=== PATIENT | male | born 1980 | race Caucasian/White ===

== ENCOUNTER 2017-07-03 20:15 | Observation (INO) ==
--- NOTE | 2017-07-03 21:36 | Emergency Department Note ---
Disposition Clinical Impression: Near syncope Hypertension Qualifiers: Hypertension type: unspecified Qualified Code(s): I10 - Essential (primary) hypertension Disposition: Admitted As Inpatient Condition: Good Instructions: Near Syncope (ED) Referrals: Flora Henderson MD [Primary Care Provider] - Forms: ED Satisfaction Letter Time of Disposition: 23:18 General Adult HPI - General Chief complaint: ED Dizziness Stated complaint: dizziness, vomiting, head pain Time Seen by Provider: 07/03/17 20:57 Source: patient, family Mode of arrival: ambulatory Limitations: no limitations Nursing Notes Reviewed: Yes Vital Signs Reviewed: Yes - History of Present Illness HPI Narrative: 36-year-old male with a history of anxiety and recently diagnosed hypertension presents to the ED for near syncope. He was at his daughter's volleyball game while at rest sitting he began to feel lightheaded feeling of passing out. He denies palpitations, chest pain, shortness of breath or severe headache. He decided to sit in the car and wait it out, he did feel nauseated and felt clammy but denies loss of consciousness. These symptoms occurred roughly at 1800 today. He just saw his primary care physician yesterday it was written diagnosed with hypertension placed on Triamterene-HCTZ 37.5-25 mg which she took this morning at 7 AM. His sertraline was also increased to 25 mg. He states this is not feel like his anxiety. Denies any history of cardiac ischemic disease. Denies any headache, cough, fever, recent illness. Denies any neck pain, abdominal pain, bloody stool or blacked tarry stools. He played sports as a child denies any syncope. Denies any sudden cardiac events in the family. Denies any history of blood clots, active cancer, long-distance travel , hospitalization or surgery. Denies any head trauma. He also reports a history of shingles located on his right temporal region he was seen and evaluated by his primary care physician is given Valtrex. He otherwise appears in no acute distress. Chest pain workup initiated. Concern for anginal equivalent. Also with get orthostatic vital signs. He currently is hypertensive 175/101 Pain Scale: 8 - Related Data Allergies Allergy/AdvReac Type Severity Reaction Status Date / Time No Known Allergies Allergy Verified 07/03/17 22:17 All systems ED: reviewed and negative except as stated. Review of Systems: As Per HPI Constitutional: Denies: fever, chills, weakness Eyes: Denies: vision change Cardiovascular: Reports: chest pain. Denies: dyspnea on exertion Respiratory: Denies: cough, dyspnea Gastrointestinal: Reports: nausea. Denies: abdominal pain, vomiting, diarrhea Genitourinary: Denies: urgency, dysuria Musculoskeletal: Denies: back pain, neck pain Integumentary: Denies: rash, abrasion, lesions Neurological: Denies: headache, weakness, numbness, confusion, vertigo Psychiatric: Reports: anxiety Past Medical History - Past Medical History Attestation: Yes The following information was validated with the patient. Source: patient Medical history: Reports: hypertension Psychiatric history: Reports: anxiety - Social History Smoking Status: Never smoker Smokeless Tobacco Status: Yes Alcohol use: Reports: occasionally Drug use: Reports: none Physical Exam - General Limitations: no limitations General appearance: alert, in no apparent distress - Head Head exam: atraumatic, normocephalic, normal inspection - Eye Eye exam: Present: normal appearance, PERRL, EOMI - ENT ENT exam: normal exam, normal oropharynx, mucous membranes moist - Neck Neck exam: Present: normal inspection, full ROM, trachea midline - Chest Chest inspection: Present: normal inspection, symmetric chest wall rise. Absent : tenderness - Respiratory Respiratory exam: Present: normal lung sounds bilaterally. Absent: respiratory distress, wheezes - Cardiovascular Cardiovascular exam: Present: regular rate, normal rhythm, normal heart sounds, other (no murmur with valsalva or standing). Absent: systolic murmur, diastolic murmur - Abdominal Exam Abdominal exam: Present: soft, Non-Tender, normal bowel sounds. Absent: tenderness, distention, guarding, rebound, rigidity - Extremities Exam Extremities exam: Present: normal inspection, full ROM, normal capillary refill. Absent: tenderness, pedal edema - Neurological Exam Neurological exam: Present: alert, oriented X3, CN II-XII intact, normal gait - Expanded Neurological Exam Patient oriented to: Present: person, place, time Speech: Present: fluid speech Cranial nerves: EOM function (II, III, IV, ): Normal, facial sensation (V): Normal, facial palsy (VII): Normal, gag reflex (IX): Normal, spinal accessory function (XI): Normal, tongue deviation (XII): Normal Cerebellar function: finger to nose: Normal, heel to buchanan: Normal Cerebellar function: normal gait, Romberg normal Motor strength - LUE: 5/5 Motor strength - RUE: 5/5 Motor strength - LLE: 5/5 Motor strength - RLE: 5/5 Upper motor neuron exam: shira neglect: Absent bilaterally, pronator drift: Absent bilaterally Sensory exam upper extremity: light touch: Normal Sensory exam lower extremity: light touch: Normal - Psychiatric Psychiatric exam: Present: normal affect, normal mood - Skin Skin exam: Present: warm, dry, intact, normal color. Absent: cyanosis, diaphoresis Course - Reevaluation(s) Reevaluation #1: When my attending spoke with patient, he described some chest discomfort as well as clamminess during near syncopal episode. Concerning due to recent diagnosis of hypertension, chest pain workup initiated with d-dimer. Labs reviewed, d-dimer is <215. Troponin is 0. Labs are otherwise unremarkable other than elevated hgb. EKG does not reveal any arrhythmia, prolonged intervals, delta wave, Brugada pattern, or LVH to suggest HOCM. No murmur on auscultation. Neurologic exam is normal without focal neuro deficits. Given his presentation however would like to admit for serial enzymes and monitor. Patient is in agreement with this plan. Impression is near syncope, chest pain, and hypertension. Aspirin ordered here and given. His BP has come down from 175/101 to 150/108 without intervention. No signs of end-organ damage. Time: 23:06 - Consultations Consultation #1: Spoke to on-call hospitalist joelle Mccurdy to admit for near syncope, hypertension, and chest pain. No further orders at this time. Time: 23:20 Vital Signs Temperature 97.7 F 07/03/17 20:18 Pulse Rate 97 07/03/17 20:18 Respiratory Rate 18 07/03/17 20:18 Blood Pressure 175/107 07/03/17 20:18 O2 Sat by Pulse Oximetry 98 07/03/17 20:18 Temperature 97.7 F 07/03/17 20:18 Pulse Rate 81 07/03/17 22:08 Respiratory Rate 18 07/03/17 20:18 Blood Pressure 167/107 07/03/17 22:08 O2 Sat by Pulse Oximetry 98 07/03/17 20:18 Oxygen Delivery Oxygen Delivery Room Air Medical Decision Making - Medical Records Medical records reviewed: Yes I reviewed the patient's medical records. - Lab Data Lab results reviewed: Yes I reviewed the patient's lab results. Result diagrams: 07/03/17 22:29 07/03/17 22:29 Lab Results 07/03/17 07/03/17 07/03/17 Range/Units 22:29 22:29 22:29 WBC 8.3 (4.3-11.1) K/mcL RBC 5.52 H (4.19-5.50) M/mcL Hgb 18.5 H (12.9-16.9) g/dL Hct 51.0 H (37.5-50.1) % MCV 92.4 (83.0-100.0) fL MCH 33.5 H (28.0-33.3) pg MCHC 36.3 H (31.6-35.5) g/dL RDW 12.1 (11.5-14.5) % Plt Count 246 (140-400) K/mcL MPV 9.8 (9.4-12.4) fL Immature Gran % 0.6 (0-4) % Seg Neutrophils % 59.1 % Lymphocytes % 28.0 % Monocytes % 8.9 % Eosinophils % 2.3 % Basophils % 1.1 % Neutrophils # 4.9 (1.6-8.9) K/mcL Lymphocytes # 2.3 (0.6-4.6) K/mcL Monocytes # 0.7 (0.0-1.3) K/mcL Eosinophils # 0.2 (0.0-0.6) K/mcL Basophils # 0.1 (0.0-0.2) K/mcL D-Dimer (0-500) ng/mLFEU Sodium 138 (136-145) mEq/L Potassium 4.3 (3.5-4.5) mEq/L Chloride 99 (98-109) mEq/L Carbon Dioxide 26 (19-29) mEq/L BUN 13 (8-26) mg/dL Creatinine 1.07 (0.72-1.25) mg/dL Est GFR ( Amer) > 60 (> 60) Est GFR (Non-Af Amer) > 60 (> 60) BUN/Creatinine Ratio 12 (6-26) Glucose 101 H (70-99) mg/dL Calculated Osmolality 286 (280-300) Calcium 10.1 (8.6-10.8) mg/dL Troponin I 0.00 (0-0.03) ng/mL 07/03/17 Range/Units 22:29 WBC (4.3-11.1) K/mcL RBC (4.19-5.50) M/mcL Hgb (12.9-16.9) g/dL Hct (37.5-50.1) % MCV (83.0-100.0) fL MCH (28.0-33.3) pg MCHC (31.6-35.5) g/dL RDW (11.5-14.5) % Plt Count (140-400) K/mcL MPV (9.4-12.4) fL Immature Gran % (0-4) % Seg Neutrophils % % Lymphocytes % % Monocytes % % Eosinophils % % Basophils % % Neutrophils # (1.6-8.9) K/mcL Lymphocytes # (0.6-4.6) K/mcL Monocytes # (0.0-1.3) K/mcL Eosinophils # (0.0-0.6) K/mcL Basophils # (0.0-0.2) K/mcL D-Dimer < 215 (0-500) ng/mLFEU Sodium (136-145) mEq/L Potassium (3.5-4.5) mEq/L Chloride (98-109) mEq/L Carbon Dioxide (19-29) mEq/L BUN (8-26) mg/dL Creatinine (0.72-1.25) mg/dL Est GFR ( Amer) (> 60) Est GFR (Non-Af Amer) (> 60) BUN/Creatinine Ratio (6-26) Glucose (70-99) mg/dL Calculated Osmolality (280-300) Calcium (8.6-10.8) mg/dL Troponin I (0-0.03) ng/mL - Radiology Data Radiology results reviewed: Yes I reviewed the patient's radiology results. Chest X-Ray 07/03/17 21:28 IMPRESSION: No acute process. D/ / Jose Decker MD / Jose Decker MD Interpreting Provider: Jose Decker MD - EKG Data EKG #1 EKG attestation: Yes I reviewed and interpreted this EKG. EKG results narrative: EKG performed 2130 normal sinus rhythm 78 bpm, no ST elevations or depression, intervals are within normal limits LA interval 156, QRS 105 QT QTc 362 395. Compared to old EKG performed 03/11/2014 shows consistent findings. No delta wave, Brugada pattern or LVH. No acute ischemic changes.
--- NOTE | 2017-07-03 22:00 | Emergency Department Note ---
Disposition Clinical Impression: Near syncope, Hypertension Disposition: Admitted As Inpatient Condition: Good General Adult HPI - General Chief complaint: ED Dizziness Stated complaint: dizziness, vomiting, head pain Time Seen by Provider: 07/03/17 20:57 Source: patient, family Mode of arrival: ambulatory Limitations: no limitations - History of Present Illness Pain Scale: 8 - Related Data Home Medications Medication Instructions Recorded Confirmed LORazepam [Ativan] 1 mg PO DAILY PRN 07/04/17 07/04/17 Omeprazole [PriLOSEC] 20 mg PO DAILY 07/04/17 07/04/17 Sertraline [Zoloft] 25 mg PO DAILY 07/04/17 07/04/17 Triamterene/HCTZ 37.5/25mg 1 each PO DAILY 07/04/17 07/04/17 [Dyazide] valACYclovir [Valtrex] 500 mg PO DAILY 07/04/17 07/04/17 Allergies Allergy/AdvReac Type Severity Reaction Status Date / Time shellfish derived Allergy Shortness Verified 07/04/17 11:37 of Breath Past Medical History - Past Medical History Medical history: Reports: hypertension Psychiatric history: Reports: anxiety - Social History Smoking Status: Never smoker Smokeless Tobacco Status: Yes Alcohol use: Reports: occasionally Drug use: Reports: none Physical Exam - General Limitations: no limitations General appearance: alert Course - Reevaluation(s) Reevaluation #1: I saw the patient with the resident, Dr. Go. Patient presented with a near syncopal episode that occurred between 6 and 7:00 this evening. He was sitting at his daughter's volleyball game when he suddenly felt himself getting lightheaded. He specifically said he did not feel like the room was spinning and he specifically stated that it did not feel like vertigo. He said he felt himself get clammy and sweaty and lightheaded. He decided walk to the car and see if that will make him feel better but he continued to get worse and so he talked to his and they came here to try to be seen. At this time he says he still feels funny. He tells me that he had some chest tightness while this was going on. He does not have chest tightness at this time in the department. His 12-lead EKG shows no evidence of ischemia at this time. His examination is unremarkable. Listening to the story I am concerned that this could be a cardiac cause of near syncope. We will check a chest pain workup including a d- dimer. I think the patient is going to need to be admitted to the hospital. At this point is getting to the end of my shift so will be turning the case over to the night team. They will be told of the extrication to admit the patient after the workup is completed. Time: 22:00 Vital Signs Temperature 97.7 F 07/03/17 20:18 Pulse Rate 97 07/03/17 20:18 Respiratory Rate 18 07/03/17 20:18 Blood Pressure 175/107 07/03/17 20:18 O2 Sat by Pulse Oximetry 98 07/03/17 20:18 Temperature 98.2 F 07/04/17 10:45 Pulse Rate 74 07/04/17 13:45 Respiratory Rate 14 07/04/17 14:53 Blood Pressure 146/88 07/04/17 14:53 O2 Sat by Pulse Oximetry 97 07/04/17 10:45 Oxygen Delivery Oxygen Delivery Room Air Medical Decision Making - Lab Data Result diagrams: 07/04/17 04:33 07/04/17 04:33 Lab Results 07/03/17 07/03/17 07/03/17 Range/Units 22:29 22:29 22:29 WBC 8.3 (4.3-11.1) K/mcL RBC 5.52 H (4.19-5.50) M/mcL Hgb 18.5 H (12.9-16.9) g/dL Hct 51.0 H (37.5-50.1) % MCV 92.4 (83.0-100.0) fL MCH 33.5 H (28.0-33.3) pg MCHC 36.3 H (31.6-35.5) g/dL RDW 12.1 (11.5-14.5) % Plt Count 246 (140-400) K/mcL MPV 9.8 (9.4-12.4) fL Immature Gran % 0.6 (0-4) % Seg Neutrophils % 59.1 % Lymphocytes % 28.0 % Monocytes % 8.9 % Eosinophils % 2.3 % Basophils % 1.1 % Neutrophils # 4.9 (1.6-8.9) K/mcL Lymphocytes # 2.3 (0.6-4.6) K/mcL Monocytes # 0.7 (0.0-1.3) K/mcL Eosinophils # 0.2 (0.0-0.6) K/mcL Basophils # 0.1 (0.0-0.2) K/mcL D-Dimer (0-500) ng/mLFEU Sodium 138 (136-145) mEq/L Potassium 4.3 (3.5-4.5) mEq/L Chloride 99 (98-109) mEq/L Carbon Dioxide 26 (19-29) mEq/L BUN 13 (8-26) mg/dL Creatinine 1.07 (0.72-1.25) mg/dL Est GFR ( Amer) > 60 (> 60) Est GFR (Non-Af Amer) > 60 (> 60) BUN/Creatinine Ratio 12 (6-26) Glucose 101 H (70-99) mg/dL Calculated Osmolality 286 (280-300) Calcium 10.1 (8.6-10.8) mg/dL Troponin I 0.00 (0-0.03) ng/mL // Range/Units 22:29 WBC (4.3-11.1) K/mcL RBC (4.19-5.50) M/mcL Hgb (12.9-16.9) g/dL Hct (37.5-50.1) % MCV (83.0-100.0) fL MCH (28.0-33.3) pg MCHC (31.6-35.5) g/dL RDW (11.5-14.5) % Plt Count (140-400) K/mcL MPV (9.4-12.4) fL Immature Gran % (0-4) % Seg Neutrophils % % Lymphocytes % % Monocytes % % Eosinophils % % Basophils % % Neutrophils # (1.6-8.9) K/mcL Lymphocytes # (0.6-4.6) K/mcL Monocytes # (0.0-1.3) K/mcL Eosinophils # (0.0-0.6) K/mcL Basophils # (0.0-0.2) K/mcL D-Dimer < 215 (0-500) ng/mLFEU Sodium (136-145) mEq/L Potassium (3.5-4.5) mEq/L Chloride (98-109) mEq/L Carbon Dioxide (19-29) mEq/L BUN (8-26) mg/dL Creatinine (0.72-1.25) mg/dL Est GFR ( Amer) (> 60) Est GFR (Non-Af Amer) (> 60) BUN/Creatinine Ratio (6-26) Glucose (70-99) mg/dL Calculated Osmolality (280-300) Calcium (8.6-10.8) mg/dL Troponin I (0-0.03) ng/mL Attestation Statement - Attestation Attestation: I, Dr. Moseley, examined this patient [id number] and my medical decision- making was reviewed with the Resident Physician, Dr. Go. I agree with the documented findings, disposition and treatment plan as described except to the extent set forth below. Please see my progress notes for details.
[2017-07-03 22:40] LABS: Basophils # 0.1 K/mcL (0.0-0.2); Basophils % 1.1 %; Eosinophils # 0.2 K/mcL (0.0-0.6); Eosinophils % 2.3 %; Hemoglobin 18.5 g/dL (12.9-16.9); Immature Granulocytes % 0.6 % (0-4); Lymphocytes # 2.3 K/mcL (0.6-4.6); Mean Corpuscular HGB Conc 36.3 g/dL (31.6-35.5); Mean Corpuscular Hemoglobin 33.5 pg (28.0-33.3); Mean Corpuscular Volume 92.4 fL (83.0-100.0); Mean Platelet Volume 9.8 fL (9.4-12.4); Monocytes # 0.7 K/mcL (0.0-1.3); Monocytes % 8.9 %; Neutrophils # 4.9 K/mcL (1.6-8.9); Platelet Count 246 K/mcL (140-400); Red Blood Count 5.52 M/mcL (4.19-5.50); Red Cell Distribution Width 12.1 % (11.5-14.5); Segmented Neutrophils % 59.1 %
[2017-07-03 22:48] LABS: BUN/Creatinine Ratio 12 (6-26); Blood Urea Nitrogen 13 mg/dL (8-26); Calcium 10.1 mg/dL (8.6-10.8); Carbon Dioxide 26 mEq/L (19-29); Chloride 99 mEq/L (98-109); Glucose 101 mg/dL (70-99); Osmolality,Calculated 286 (280-300); Potassium 4.3 mEq/L (3.5-4.5); Sodium 138 mEq/L (136-145); eGFR For African Americans > 60 (> 60); eGFR For Non-African Americans > 60 (> 60)
[2017-07-03] MEDS ORDERED: 0.9 % Sodium Chloride 1,000 ML IVC ONE (23:16)
[2017-07-03] MEDS ORDERED: Aspirin 81 MG TAB.CHEW PO STA (23:19)
[2017-07-04] MEDS ORDERED: Acetaminophen 325 MG TABLET PO PRN (00:30)
[2017-07-04] MEDS ORDERED: Ondansetron 4 MG/2 ML VIAL IVP PRN (00:30)
[2017-07-04] MEDS ORDERED: Nitroglycerin 0.4 MG TAB.SUBL SL PRN (01:09)
--- NOTE | 2017-07-04 01:10 | Internal Med History&Physical ---
<Alejo Coffman - Last Filed: 07/04/17 01:11> Date of Encounter: 07/04/17 Time of Encounter: 00:10 Assessment and Plan (1) ACS (acute coronary syndrome) Current visit: Yes Status: Suspected - Concern of ACS given patient's near-syncope with chest pain and multiple risk factors (HTN, obesity, tobacco chewing). - Currently no chest pain and initial troponin & EKG are negative. - Telemetry monitoring, serial troponin and nuclear stress test. - Start aspirin, statin, beta-gage and prn nitro. (2) Near syncope Current visit: Yes Status: Acute - New-onset lightheadedness with near syncope. - Likely orthostatic hypotension (given positive orthostatic vital signs in ED) and/or vasovagal. - Admit for further work-up including echocardiogramfor other possible cardiogenic causes including ACS, arrhythmia or underlying valvular disease. - Echocardiogram and continuous telemetry for further evaluation - Patient is instructed to remain well-hydrated and take time to get up slowly. - Will hold patient's home Triamterene-HCTZ for now given it's potential contribution to orthostatic hypotension. (3) Hypertension Current visit: Yes Status: Chronic - Patient was started on Triamterene-HCTZ, 37.5-25 mg daily by his PCP on . - Will hold Triamterene-HCTZ for now given it's potential contribution to patient's orthostatic hypotension. - Metoprolol was started for the concern of possible ACS. - Patient will need to follow up with his PCP after discharge to discuss about his blood pressure management regimen. Qualifiers: Hypertension type: essential hypertension Qualified Code(s): I10 - Essential (primary) hypertension (4) Shingles Current visit: Yes Status: Chronic - Patient reports having right temporal shingles. - Continue valacyclovir. Qualifiers: Herpes zoster complications: without complications Qualified Code(s): B02.9 - Zoster without complications (5) Anxiety Current visit: Yes Status: Chronic - Continue home dose sertraline and prn lorazepam. (6) DVT prophylaxis Current visit: Yes Status: Acute - SQ heparin. Internal Medicine - H&P: HPI Chief complaint: Near-syncope Admitted From: Emergency Dept Plans for Post Hospital Care: Home History of present illness: Mr. Cabrera is a 36 year old male with PMH of anxiety and hypertension which his PCP started him on Triamterene-HCTZ 37.5-25 daily on 07/02/17. Patient presented with complaint of new-onset lightheadedness with near syncope. Patient reports it started when he sat down and watched his daughter's volleyball game at around 1800. No modifying factor noted including exertion. It 's associated with chest tightness, diaphoresis, palpitation, pulsating sensation of right ear and nausea/vomiting. Patient denies syncope, shortness of breath, vision change, numbness/tingling, focal weakness. Patient reports being well-hydrated recently. Patient denies smoking cigarettes but admits tobacco chewing. Patient denies known heart problem. Patient denies family history of sudden and the only family member with [place] he knows of is his grandfather. Past Med Surg Social Fam HX - Past Medical History Medical history: hypertension Psychiatric history: anxiety - Past Surgical History Surgical History: other (right ankle surgery) - Social History Smoking Status: Never smoker (But chewing tobacco) Smokeless Tobacco Status: Yes Alcohol use: occasionally Drug use: none - Family History Paternal Grandfather Living Status: Cause of : [place] Internal Medicine - H&P: Meds LORazepam [Ativan] 1 mg PO DAILY PRN 07/04/17 [History] Omeprazole [PriLOSEC] 20 mg PO DAILY 07/04/17 [History] Sertraline [Zoloft] 25 mg PO DAILY 07/04/17 [History] Triamterene/HCTZ 37.5/25mg 37.5 mg PO DAILY 07/04/17 [History] valACYclovir [Valtrex] 500 mg PO DAILY 07/04/17 [History] No Known Allergies Allergy (Verified 07/03/17 22:17) All Systems PM: A 10-system review of systems was performed and is negative for pertinent findings except as documented above in the HPI. - Constitutional Constitutional: no anorexia, no chills, no fever(s) - EENT Eyes: no change in vision Ears: no decreased hearing Nose, mouth and throat: no dysphagia, no odynophagia - Cardiovascular Cardiovascular ROS IM: as per HPI, chest pain, lightheadedness, palpitations, no edema, no syncope - Respiratory Respiratory: no cough, no dyspnea, no hemoptysis - Gastrointestinal Gastrointestinal: nausea, vomiting, no abdominal pain, no diarrhea, no hematochezia, no melena - Genitourinary Genitourinary ROS male: no difficulty urinating, no dysuria, no hematuria - Integumentary Integumentary IM: no pruritus, no rash - Neurological Neurological ROS: no focal weakness, no numbness, no tingling - Hematologic/Lymphatic Hematologic/Lymphatic: no easy bleeding, no easy bruising - Constitutional Vitals: Temp Pulse Resp BP Pulse Ox 97.8 F 63 15 157/100 97 07/04/17 00:47 07/04/17 00:47 07/04/17 00:47 07/04/17 00:47 07/04/17 00:47 General appearance: Present: cooperative, A&O X 3, no acute distress, obese, answers questions appropriately - Head Head exam: Present: atraumatic, normocephalic - Eye Eye exam: Present: EOMI, PERRL, conjuntiva pink, sclera anicteric - Neck Neck exam general surgery: Present: supple, trachea midline. Absent: lymphadenopathy - Respiratory Respiratory exam: Present: CTAB. Absent: accessory muscle use, rales, rhonchi, wheezes - Cardiovascular Cardiovascular exam: Present: RRR, +S1, +S2. Absent: diastolic murmur, gallop, rubs, systolic murmur - GI/Abdominal GI/Abdominal exam: Present: normal bowel sounds, soft, no peritoneal signs. Absent: distended, tenderness - Extremities Exam Extremities exam: Present: warm, radial pulses palpable and symmetrical. Absent : calf tenderness, cyanotic, pedal edema - Neurological Exam Neurological exam: Present: CN II-XII intact, oriented X3, no focal deficits. Absent: pronater drift, facial droop, speech deficit - Skin Skin exam: Present: dry, intact, warm Internal Med - H&P Results - Labs CBC & Chem 7: 07/03/17 22:29 07/03/17 22:29 <Adiel Mcclure - Last Filed: 07/04/17 02:32> Date of Encounter: 07/04/17 Assessment and Plan (1) GERD (gastroesophageal reflux disease) Current visit: Yes Status: Chronic will continue PPI Qualifiers: Esophagitis presence: without esophagitis Qualified Code(s): K21.9 - Gastro -esophageal reflux disease without esophagitis Internal Medicine - H&P: HPI History of present illness: Mr. Cabrera is a 36 year old male Past Med Surg Social Fam HX - Past Medical History Source: patient, nursing notes reviewed Medical history: GERD All Systems PM: A 10-system review of systems was performed and is negative for pertinent findings except as documented above in the HPI. - Constitutional Vitals: Temp Pulse Resp BP Pulse Ox 97.8 F 63 15 157/100 97 07/04/17 00:47 07/04/17 00:47 07/04/17 00:47 07/04/17 00:47 07/04/17 00:47 Internal Med - H&P Results - Labs CBC & Chem 7: 07/03/17 22:29 07/03/17 22:29 - EKG Data -: EKG Interpreted by Myself - EKG Data Prior EKG available for review: yes When compared to previous EKG: there is no significant change - Diagnostic Studies Chest x-ray Status: image reviewed by me - Attending Attestation I personally interviewed and examined this patient and my medical decision- making was reviewed with the Resident Physician. I agree with the documented findings, disposition and treatment plan as described. Patient comes in with a mixture of symptoms bordering on vasovagal vs orthostatic hypotension(in the setting of new combination medication, started just 2-3 days prior). The concern here is that he has risk factors for CAD as well as symptoms that is concerning for ACS, he will therefore benefit from ACS r/o. With regards to his orthostatic hypotension we may need to hold his new combination antihypertensives and do a single medication at a low dose and gradually titrate up based on his symptoms and BP readings, per patient his PCP is very accessible and can work with patient on this on the outpatient. Adiel Mcclure MD, MPH Hospitalist
[2017-07-04] MEDS ORDERED: *HR* LORazepam 1 MG TABLET PO PRN (01:27)
[2017-07-04] MEDS: *HR* Heparin 5,000 UNIT/ML VIAL SQ SCH ×3 (04:44→21:48)
[2017-07-04 05:25] LABS: Immature Platelets 4.6 % (1.1-6.1); Mean Corpuscular HGB Conc 35.5 g/dL (31.6-35.5); Mean Corpuscular Hemoglobin 33.3 pg (28.0-33.3); Mean Corpuscular Volume 93.6 fL (83.0-100.0); Mean Platelet Volume 10.4 fL (9.4-12.4); Red Blood Count 5.02 M/mcL (4.19-5.50); Red Cell Distribution Width 12.3 % (11.5-14.5)
[2017-07-04 05:29] LABS: Hemoglobin 16.7 g/dL (12.9-16.9)
[2017-07-04 05:41] LABS: BUN/Creatinine Ratio 15 (6-26); Blood Urea Nitrogen 13 mg/dL (8-26); Carbon Dioxide 27 mEq/L (19-29); Chloride 102 mEq/L (98-109); Glucose 97 mg/dL (70-99); Magnesium 2.1 mg/dL (1.6-2.6); Osmolality,Calculated 284 (280-300); Potassium 3.8 mEq/L (3.5-4.5); Sodium 137 mEq/L (136-145); eGFR For African Americans > 60 (> 60); eGFR For Non-African Americans > 60 (> 60)
[2017-07-04 06:03] LABS: Thyroid Stimulating Hormone 2.234 mcIU/mL (0.350-4.840)
[2017-07-04] MEDS: Aspirin 81 MG TAB.CHEW PO SCH (09:06)
[2017-07-04] MEDS: valACYclovir 500 MG TABLET PO SCH (09:09)
--- NOTE | 2017-07-04 11:49 | Nuclear Medicine Stress Report ---
Exercise Nuclear Stress Name: Minh Cabrera Date of Study: 07/04/2017 Date: 1980 Ht: 70.0 in Medical Record#: [id number] Age: 36 Wt: 223.0 lb Gender: Male Order #: [id number] Location: [facility] Room: [facility] Supervising Provider: Luke Larios CNP Reading Physician: Surya Santos MD, [facility] Ordering Physician: Karin Aguirre CNP Primary Care Physician: Flora Henderson MD Stress Technologist: Analilia De La Cruz RRT Processing Lead: Amador Burroughs Indications: Chest Pain Impression: Baseline elevated blood pressure (142/96). Peak BP with exercise was 200/110. The exercise capacity was excellent. Exercise ECG is negative for ischemia. Gated LVEF = 62%. Perfusion imaging was negative for ischemia or infarct. History: Hypertension Stress Test Summary: Stress Test Type: Treadmill Protocol: Mayur Baseline Information: Initial Heart Rate: 70 Blood Pressure: 142/96 Stress Information: Stress Time: 12 min 31 sec Test Terminated Due to (primary): Fatigue Maximum Blood Pressure: 200/110 Maximum Heart Rate: 159 Percent Maximum Heart Rate Achieved: 87 Double Product: 31351 METS Reached: 12.8 Symptoms: Fatigue Nuclear Summary: SPECT myocardial perfusion imaging using Tc99m Sestamibi given intravenously was performed at rest and following cardiac stress testing. The resting images were obtained following initial dose of 11.3 mCi. Following stress an additional dose of 35.3 mCi was given at peak exercise or 30 seconds post regadenoson infusion. Findings: Stress Note * Resting ECG demonstrated sinus rhythm. * No baseline arrhythmias were noted. * The exercise capacity was excellent. * Patient had no chest pain during stress. * No arrhythmias were noted during stress. * Exercise ECG is negative for ischemia. Hemodynamic responses * Baseline elevated blood pressure (142/96). Peak BP with exercise was 200/110. Study Quality * Study quality is average. Gated EF % * Gated LVEF = 62%. Left Ventricle * The left ventricle is not dilated. * Inferoapical artifact noted on resting images. * Normal segmental perfusion in stress. TID * No evidence of transient ischemic dilatation. Updated by Surya Santos MD, [facility] on 07/04/2017 11:43:20 AM electronically signed on 07/04/2017 11:43:48 AM with status of Final
[2017-07-04] MEDS ORDERED: Ondansetron ODT 4 MG TAB.RAPDIS SL PRN (13:50)
--- NOTE | 2017-07-04 15:30 | Electrocardiograph Report ---
[place] [id number] Test Date: 2017-07-03 Pat Name: Minh Cabrera Department: 105 Room: [facility] Gender: M Bale Sewer: : 1980 Requested By: Rolando Go Order Number: [id number] Reading MD: Mayur Randolph MD Measurements Intervals Wedron Rate: 78 P: 57 AL: 156 QRS: -24 QRSD: 105 T: 1 QT: 362 QTc: 395 Interpretive Statements SINUS RHYTHM BORDERLINE LEFT AXIS DEVIATION Poor R wave progression Electronically Signed On 07-04-2017 15:28:30 EDT by Mayur Randolph MD
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
[2017-07-04] MEDS ORDERED: Methyl Salicylate/Menthol 28 GM TUBE TP PRN (23:32)
[2017-07-05 04:28] LABS: Basophils # 0.1 K/mcL (0.0-0.2); Basophils % 0.8 %; Eosinophils # 0.3 K/mcL (0.0-0.6); Hematocrit 46.6 % (37.5-50.1); Hemoglobin 16.2 g/dL (12.9-16.9); Immature Granulocytes % 0.6 % (0-4); Lymphocytes # 2.7 K/mcL (0.6-4.6); Lymphocytes % 32.5 %; Mean Corpuscular HGB Conc 34.8 g/dL (31.6-35.5); Mean Corpuscular Hemoglobin 32.9 pg (28.0-33.3); Mean Corpuscular Volume 94.7 fL (83.0-100.0); Mean Platelet Volume 10.1 fL (9.4-12.4); Monocytes # 0.8 K/mcL (0.0-1.3); Monocytes % 8.9 %; Neutrophils # 4.5 K/mcL (1.6-8.9); Platelet Count 202 K/mcL (140-400); Red Blood Count 4.92 M/mcL (4.19-5.50); Red Cell Distribution Width 12.1 % (11.5-14.5); Segmented Neutrophils % 54.2 %
[2017-07-05 04:41] LABS: BUN/Creatinine Ratio 15 (6-26); Blood Urea Nitrogen 14 mg/dL (8-26); Carbon Dioxide 29 mEq/L (19-29); Chloride 104 mEq/L (98-109); Glucose 97 mg/dL (70-99); Osmolality,Calculated 290 (280-300); Potassium 4.2 mEq/L (3.5-4.5); Sodium 140 mEq/L (136-145); eGFR For African Americans > 60 (> 60); eGFR For Non-African Americans > 60 (> 60)
[2017-07-05] MEDS: *HR* Heparin 5,000 UNIT/ML VIAL SQ SCH ×2 (05:16→14:29)
[2017-07-05] MEDS: valACYclovir 500 MG TABLET PO SCH (08:11)
[2017-07-05] MEDS: Aspirin 81 MG TAB.CHEW PO SCH (08:13)
[2017-07-05] MEDS ORDERED: hydroCHLOROthiazide 25 MG TABLET PO SCH (09:00)
[2017-07-05 15:14] VITALS: BP 159/82
--- NOTE | 2017-07-05 15:51 | EEG/EMG/Oth Biometrics Report ---
EEG Procedure Report Date of procedure: 07/05/17 EEG Procedure: Routine EEG Procedure Note: This is a report of a 21 channel bipolar and referential montage EEG. The posterior dominant rhythm of 9-10 Hz moderate voltage alpha frequencies identified symmetrically in the posterior head regions. This rhythm attenuates with eye opening. Beta frequencies identified bifrontally during wakefulness. Hyperventilation is performed and does result in some desynchronization of the recording however no ictal activity is identified during hyperventilation. Periods of drowsiness and stage II sleep were identified as referenced by dropout of the posterior dominant rhythm and the emergence of vertex activity, K complexes, and sleep spindles. Photic stimulation is performed and produces a symmetric driving response. The EKG strip reveals sinus bradycardia at 54 beats per minute. Impressions: This EEG recording is within normal limits. There is no evidence of epileptiform activity identified during the study. Comment: Motor frequencies are not recognized as a normal variant, however may also be reflective of a host of metabolic conditions, anxiety, and medication effect namely benzodiazepines and barbiturates. Please correlate clinically.
--- NOTE | 2017-07-05 15:52 | Discharge Summary ---
Date of Encounter: 07/05/17 Time of Encounter: 14:40 - Discharge Diagnosis (1) Near syncope Priority: Primary Status: Acute Comments: Pt reports near syncope at daughter's volleyball game prior to arrival to the ED. Pt states that he is feeling better today and is back to his baseline dizziness. I believe that this was medication related since he had just been started on combination antihypertensive 1 day prior to event. Pt states that he is very sensitive to medications and only takes half of the lowest dose of his antidepressant due to increased drowsiness. Pt has felt better on a low dose of HCTZ. He was put on a low dose of a BB but did not tolerate it well and states that he felt tired and foggy. All imaging and testing has been negative. He was not able to have the tilt table test done due to having eaten breakfast this a.m. Test will be done on an outpatient basis. (2) Hypertension Priority: Secondary Status: Chronic Comments: Pt was placed on combination antihypertensive that may have been the contributing factor to his near syncope. Pt was started on low dose BB, which pt states made him feel sleepy and foggy. Currently he is tolerating low dose HCTZ, however, he is hypertensive again in the afternoon, so pt can take it BID for BP control. Rx called into pharmacy. Qualifiers: Hypertension type: essential hypertension Qualified Code(s): I10 - Essential (primary) hypertension (3) ACS (acute coronary syndrome) Priority: Secondary Status: Ruled-out Comments: Pt denies chest pain. Echo showed LVEF 60% with normal systolic function, normal diastolic function,no valvular dysfunction. Pt's stress test was negative for ischemia or infarct with a gated LVEF of 62%. His EKG was NSR with rate of 78, QRS 105, QTC 395. Chest xray was negative for acute process. Pt was started on ASA and statin, he did not tolerate BB. ACS can be ruled out at this point. (4) Anxiety Priority: Secondary Status: Chronic Comments: Chronic. Continue home medications. (5) Shingles Priority: Secondary Status: Chronic Comments: Chronic. Right adventism. Recurrent. Continue Valacyclovir. Qualifiers: Herpes zoster complications: without complications Qualified Code(s): B02.9 - Zoster without complications (6) GERD (gastroesophageal reflux disease) Priority: Secondary Status: Chronic Comments: Chronic. Continue home medications. Qualifiers: Esophagitis presence: without esophagitis Qualified Code(s): K21.9 - Gastro -esophageal reflux disease without esophagitis (7) DVT prophylaxis Priority: Secondary Status: Acute Comments: Heparin SQ. Pt is ambulatory - Discharge Medications Prescriptions: hydroCHLOROthiazide [Hydrochlorothiazide] 12.5 mg PO BID #15 tab Home Medications: LORazepam [Ativan] 1 mg PO DAILY PRN 07/04/17 [History] Omeprazole [PriLOSEC] 20 mg PO DAILY 07/04/17 [History] Sertraline [Zoloft] 25 mg PO DAILY 07/04/17 [History] valACYclovir [Valtrex] 500 mg PO DAILY 07/04/17 [History] Aspirin 81 mg PO DAILY 07/05/17 [Rx] hydroCHLOROthiazide [Hydrochlorothiazide] 12.5 mg PO BID #15 tab 07/05/17 [Rx] Allergies/Adverse Reactions: 3 Allergy/AdvReac Type Severity Reaction Status Date / Time shellfish derived Allergy Shortness Verified 07/04/17 11:37 of Breath Procedures/tests Complete & Pending: Procedures Performed prior 72 hours Category Date Time Status NM benoit perf SPECT multi [NM] Routine Exams 07/04/17 01:06 Taken MR head/brain wo con [MR] Routine MRI 07/05/17 12:47 Completed EV echocardiogram Routine Y 07/04/17 00:33 Completed SP exercise nuclear stress Routine Y 07/04/17 01:04 Completed Date of admission: 07/03/17 23:38 Primary care physician: Flora Henderson Consults: 07/04/17 13:51 Consult to Neurology [CONS] Routine Consulting Provider: Neurology [facility] Reason for Consult: dizziness, syncope. Prior head injury with multiple workups and treatments for dizziness, headaches Call Completed: No 07/05/17 13:26 Consult to Interpret Exam [CONS] Routine Consulting Provider: Surya Kaur Consult to Interpret Exam: Interpret EEG Discharging clinician: Qiana Lopez Anticipated date of discharge: 07/05/17 - Patient Status Disposition: Home, Self-Care Functional capacity at discharge: independent ambulation Overall status at discharge: patient is back to baseline - Discharge Instructions Instructions: Syncope (DC), Chronic Hypertension (DC), Anxiety (DC) Follow Up With: Flora Henderson MD [Primary Care Provider] - 07/10/17 10:30 am Additional Instructions: Follow up with your PCP in the next week to 10 days for a follow up visit. REturn to the ER for any other problems or concerns or if your symptoms return or worsen. Take your medications as directed. Take your normal medications as scheduled. - Diet and Activity Activity: resume usual activities as tolerated Diet: advance to your usual diet Hospital course: Mr. Cabrera is a 36 year old male with a prior medical history of hypertension , head injury, chronic dizziness, anxiety, recurrent shingles, and GERD. Patient was recently started on triamterene/HCTZ 37.5/25 daily on July 02. On July 03 patient was at his daughter's volleyball game and began feeling lightheaded and nauseated with near syncope. He reported chest tightness, diaphoresis, palpitations, pulsating sensation in the ears and nausea, vomiting. He denies actual syncope and reported to the emergency department where he was admitted for rule out ACS. Patient denies a strong family history of cardiac problems. He denies shortness of breath, vision changes, numbness or tingling, or weakness. History chest x-ray was negative for any acute process. EKG was normal sinus rhythm with a rate of 78, AR interval 156, QRS 105, QTC 395. Echocardiogram with an LVEF of 60% and normal systolic and diastolic function and no significant valvular dysfunction. Patient's stress test was negative for infarct or ischemia with gated LVEF of 62%. His triamterene/HCTZ was held. He was started on aspirin, statin, beta gage. Patient did not tolerate beta gage at all. He said he felt awful and I will be in drowsy. His resting pulse was 56 on exam. Patient states he is extremely sensitive to medications and that he normally only takes one half of the lowest dose of his antidepressant due to drowsiness if he takes a full dose. Patient also has prior history of head injury and is normally dizzy and nauseated, however this episode was above his normal. Beta gage was stopped and patient was placed back on 12.5 mg HCTZ by mouth daily. He appears to be tolerating the dose well and states that he is back at his baseline and feels well. I have written a prescription for to be taken twice daily due to patient still being slightly above goal blood pressure. She was seen by neurology. Patient had an MRI and an EEG ordered. MRI was negative for any acute infarcts in the EEG was negative for any seizure activity , but did show fluctuations and beta waves which could be indicative of anxiety. Patient is already on an antidepressant and due to his medication sensitivities, I recommend that he follow-up with his primary care provider for any medication adjustments or additions. Neurology has signed off and there are no further recommendations. Since labs and vital signs are within normal limits. Patient is appropriate and stable for discharge. - Time Spent with Patient Total time spent providing and/or coordinating discharge services: Less than 30 minutes - Constitutional Vitals: Temp Pulse Resp BP Pulse Ox 98.1 F 71 17 159/82 97 07/05/17 15:13 07/05/17 15:13 07/05/17 15:13 07/05/17 15:13 07/05/17 15:13 General appearance: Present: cooperative, A&O X 3, pleasant, no acute distress, obese, answers questions appropriately - Head Head exam: Present: normal inspection, normocephalic - Eye Eye exam: Present: EOMI, normal appearance, PERRL, conjuntiva pink. Absent: nystagmus - ENT ENT exam: Present: mucous membranes moist, normal exam, normal external ear exam - Neck Neck exam general surgery: Present: normal inspection. Absent: lymphadenopathy , tenderness - Respiratory Respiratory exam: Present: CTAB. Absent: chest wall tenderness, rales, respiratory distress, rhonchi, stridor, wheezes, tachypnea - Cardiovascular Cardiovascular exam: Present: RRR, +S1, +S2. Absent: bradycardia, clicks, diastolic murmur, gallop, systolic murmur, tachycardia - GI/Abdominal GI/Abdominal exam: Present: normal bowel sounds, soft. Absent: distended, hernia, hepatomegaly, tenderness - Extremities Exam Extremities exam: Present: normal capillary refill, normal inspection, warm, radial pulses palpable and symmetrical. Absent: pedal edema, tenderness - Neurological Exam Neurological exam: Present: alert, normal gait, oriented X3, no focal deficits. Absent: altered, pronater drift, facial droop, speech deficit
--- NOTE | 2017-07-05 16:59 | Neurology Progress Note ---
Date of Encounter: 07/05/17 Time of Encounter: 16:57 Assessment and Plan (1) Near syncope Current Visit: Yes Status: Acute I had the pleasure of following up with Minh today regarding episodes of near syncope. He has been fairly stable since being admitted to the hospital. Today he had an EEG. Which was normal. The tilt table test will be completed as an outpatient. At this juncture I am not able to identify specific neurologic etiology to explain his episodes. Perhaps it may have been secondary to medication effect. I will however follow up with him in my office after the tilt table test as been completed. If the episodes continued and I may complete a prolonged ambulatory EEG. I do not feel it necessary to implement driving restrictions. He may discharge him at your discretion. 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, quadriceps, tibialis Anterior, toe extension (EHL), plantarflexion Reflexes: Biceps: 2+, Triceps: 2+, Brachioradialis: 2+, Patella: 2+, Achilles: 2 + Mental Status Examination: Present: awake, alert, oriented to person, oriented to place, oriented to time, follows commands appropriately, answers questions appropriately, no agnosia, no aphasia, no aproxia Cranial nerve examination: Present: PERRL, EOMI, visual mcclendon intact, corneal reflexes brisk symmetrically, sensory to face intact, mastication intact, no facial asymmetry is present, no dysarthria, hearing is intact symmetrically, soft palate elevates bilaterally upon phonation, gag reflex intact, flexes SCM and trapezius muscles symmetrically with full power, tongue protrudes midline, no atrophy or facial fasiculations present Cerebellar examination: Present: no dysmetria, performs finger to nose and heel to buchanan symmetrically without ataxia, no gait ataxia, no truncal ataxia, no difficulty with rapid alternating movements Results - Laboratory Findings CBC and BMP: 07/05/17 04:08 07/05/17 04:08 Consult Discharge Plan - Plan Instructions: Hydrochlorothiazide (By mouth), Syncope (DC), Chronic Hypertension (DC), Anxiety (DC) Additional Instructions: Follow up with your PCP in the next week to 10 days for a follow up visit. Return to the ER for any other problems or concerns or if your symptoms return or worsen. Take your medications as directed. Take your normal medications as scheduled. Referrals: Flora Henderson MD [Primary Care Provider] - 07/10/17 10:30 am Surya Kaur DO [Partnered Physician] - Prescriptions: hydroCHLOROthiazide [Hydrochlorothiazide] 12.5 mg PO BID #15 tab
== END 2017-07-05 17:20 | disposition home or self-care (01) ==
LOC: EMEROO 20:15 → 3BNU 20:15
PROVIDERS: ADMIT Nurse Practitioner Family; ATTEND Nurse Practitioner Family